=== PATIENT | male | born 1985 | race Two or more races ===

== ENCOUNTER 2024-12-13 07:43 | Outpatient (RCR) | payer MEDICAID, SELFPAY | END 2025-01-01 23:59 | disposition home or self-care (01) | LOC: SCTC 07:43 | PROVIDERS: PCP Family Medicine; Referring Provider Family Medicine; Visit Provider Nurse Practitioner Family | DX: Z09 Encounter for follow-up examination after completed treatment for conditions other than malignant neoplasm (principal); Z86.711 Personal history of pulmonary embolism; Z79.01 Long term (current) use of anticoagulants; Z86.718 Personal history of other venous thrombosis and embolism; I10 Essential (primary) hypertension; E11.9 Type 2 diabetes mellitus without complications; E66.01 Morbid (severe) obesity due to excess calories; Z68.43 Body mass index [BMI] 50.0-59.9, adult; L02.11 Cutaneous abscess of neck; Z79.85 Long-term (current) use of injectable non-insulin antidiabetic drugs; Z79.84 Long term (current) use of oral hypoglycemic drugs | CPT/HCPCS: 99213; G0463 ==

== ENCOUNTER 2025-01-20 09:22 | Outpatient (RCR) | payer MEDICAID, SELFPAY | END 2025-01-31 23:59 | disposition home or self-care (01) | LOC: SCTC 09:22 | PROVIDERS: Referring Provider Nurse Practitioner Family; Visit Provider Nurse Practitioner Family | DX: Z09 Encounter for follow-up examination after completed treatment for conditions other than malignant neoplasm (principal); Z86.718 Personal history of other venous thrombosis and embolism; Z79.01 Long term (current) use of anticoagulants; Z86.711 Personal history of pulmonary embolism; I10 Essential (primary) hypertension; L02.11 Cutaneous abscess of neck; E11.65 Type 2 diabetes mellitus with hyperglycemia; Z79.85 Long-term (current) use of injectable non-insulin antidiabetic drugs; E66.01 Morbid (severe) obesity due to excess calories; Z68.43 Body mass index [BMI] 50.0-59.9, adult; G47.30 Sleep apnea, unspecified; Z99.89 Dependence on other enabling machines and devices | CPT/HCPCS: 99212; 99424; 99425; G0463 ==

== ENCOUNTER 2025-04-11 12:05 | Outpatient (RCR) | payer BC, MEDICAID, SELFPAY | END 2025-05-03 23:59 | disposition home or self-care (01) | LOC: SCTC 12:05 | PROVIDERS: PCP Family Medicine; Referring Provider Nurse Practitioner Family; Visit Provider Nurse Practitioner Family | DX: Z76.89 Persons encountering health services in other specified circumstances (principal) | CPT/HCPCS: 99211; G0463 ==